=== PATIENT | female | born 1935 | race Caucasian/White ===

== ENCOUNTER 2020-11-18 11:21 | Emergency (ER) | payer MEDICARE, SELFPAY ==
--- NOTE | 2020-11-18 11:35 | ED.URI ---
HPI - URI/Sore Throat General Chief Complaint: Upper Respiratory Infection Stated Complaint: Sore Throat,Ear Pain Time Seen by Provider: 11/18/20 11:36 Source: patient Mode of arrival: ambulatory Limitations: no limitations History of Present Illness HPI Narrative: Yaritza Wheat is a 85 yo fenale with a PMH of high blood pressure, high cholesterol, diabetes, stroke treated with streptokinase in September, who comes to [facility] with complaints of sore throat for 2 to 3 weeks. She called her doctor Wednesday who recommended that she get a strep and Covid test but thinks it was just seasonal allergies and from her description of opening of her mouth wide and ear pressure improving and her on and off sore throat seems like a probable cause Related Data Home Medications Medication Instructions Recorded Confirmed allopurinol 11/18/20 amlodipine 11/18/20 atenolol 11/18/20 11/18/20 blood sugar diagnostic [OneTouch 11/18/20 11/18/20 Ultra Test] ergocalciferol (vitamin D2) 11/18/20 insulin glargine [Lantus U-100 SUBCUT 11/18/20 Insulin] insulin lispro [Humalog U-100 11/18/20 Insulin] isosorbide dinitrate mg 11/18/20 lancets [[facility] Plus 11/18/20 11/18/20 Lancet] lisinopril 11/18/20 nitroglycerin mg 11/18/20 pravastatin 11/18/20 Allergies Allergy/AdvReac Type Severity Reaction Status Date / Time indomethacin [From Indocin] Allergy Other Verified 11/18/20 11:53 metronidazole [From Flagyl] Allergy Unknown Verified 11/18/20 11:53 Review of Systems Review of Systems: CONSTITUTIONAL: Denies fever, chills, sweats. EYES: Denies visual changes, redness, discharge. ENT: Denies rhinorrhea, congestion, occasional sore throat, occasional otalgia. CARDIOVASCULAR: Denies chest pain, palpitations, edema. RESPIRATORY: Denies dyspnea, wheezing, cough GASTROINTESTINAL: Denies abdominal pain, nausea, vomiting, diarrhea. GENITOURINARY: Denies dysuria, hematuria, abnormal discharge SKIN: Denies rash or itching. NEUROLOGIC: Denies numbness, or focal weakness. PSYCHIATRIC: Denies anxiety or depression. PMFSH Past Medical History Medical History (Updated 11/18/20 @ 12:08 by Kellee Logan CNP) Diabetes High blood pressure High cholesterol Sore throat Surgical History Surgical History History of heart artery stent Social History Social History (Updated 11/18/20 @ 11:51 by Kellee Logan CNP) Smoking status: Never smoker Alcohol intake: never Comments At time of signature, I agree with nursing past medical, surgical, social and family history. There is no relevant family history pertinent to the presenting complaint. Exam Narrative: GENERAL: This is a well-nourished, well-developed patient, in mild distress. HEAD: normocephalic, atraumatic. EYES: . Sclera clear/white. Vision is grossly intact. EARS: External ears normal, Hearing grossly intact. NOSE: External nose normal without nasal discharge, nares without redness, no rhinorrhea. THROAT: Mucous membranes moist, posterior pharynx pink NECK: Neck supple, non-tender CARDIOVASCULAR: Regular rate and rhythm without murmurs, gallops, or rubs. RESPIRATORY: Clear to auscultation. Breath sounds equal bilaterally. No wheezes, rales, or rhonchi. GASTROINTESTINAL: Abdomen soft, non-tender, SKIN: warm, intact with no suspicious lesions or rash, good texture and turgor. NEURO: awake, alert, and oriented to person, place and time. There were no obvious focal neurologic abnormalities. Steady gait EXTREMITIES: Normal range of motion. BACK: Nontender without deformity Course Course Emergency Course: Patient comes with complaints of sore throat and ear pain for 2 to 3 weeks and is talked to her primary care physician Is here for strep and Covid test-both test negative Started on Zyrtec or Claritin each morning and Flonase as needed for congestion Vital Signs Vital signs: Vital Signs
[2020-11-18 11:45] VITALS: BP 174/84; PULSE 78; RESP 20; TEMP 36.7; O2SAT 99
--- NOTE | 2020-11-18 12:59 | PC.NURSE ---
[facility]# [id number]
== END 2020-11-18 12:15 | disposition home or self-care (01) ==
PROVIDERS: Emergency Provider Nurse Practitioner
DX: J30.2 Other seasonal allergic rhinitis (principal); Z20.822 Contact with and (suspected) exposure to COVID-19; I10 Essential (primary) hypertension; E78.00 Pure hypercholesterolemia, unspecified; E11.9 Type 2 diabetes mellitus without complications; Z86.73 Personal history of transient ischemic attack (TIA), and cerebral infarction without residual deficits; Z79.4 Long term (current) use of insulin; Z95.5 Presence of coronary angioplasty implant and graft
CPT/HCPCS: 87081; 87426; 87880; 99213; C9803; G0463

== ENCOUNTER 2021-01-17 13:49 | Emergency (ER) | payer MEDICARE, SELFPAY ==
[2021-01-17 14:11] VITALS: BP 137/63; PULSE 64; RESP 18; TEMP 36.1; O2SAT 99
--- NOTE | 2021-01-17 14:48 | ED.GENADULT ---
HPI - General Adult General Chief complaint: Upper Respiratory Infection Stated complaint: cold Source: patient Mode of arrival: ambulatory Limitations: no limitations History of Present Illness HPI narrative: Patient is a 85-year-old female presents to the [facility] via POV for evaluation of cold symptoms. She states she started with a cough and green/yellow mucus that started 1 week ago although has since resolved. Last night she began with a sore throat, dry cough, and sneezing although the symptoms have markedly improved since early this morning. Afrin, Coricidin, Listerine gargles, and Flonase provides moderate relief. Nothing worsens symptoms denies known exposure to sick contacts. She is requesting influenza and Covid test which was recommended by her PCP. She is fully vaccinated against Covid and has also received Covid booster Related Data Home Medications Medication Instructions Recorded Confirmed allopurinol 11/18/20 amlodipine 11/18/20 atenolol 11/18/20 11/18/20 blood sugar diagnostic [OneTouch 11/18/20 11/18/20 Ultra Test] ergocalciferol (vitamin D2) 11/18/20 insulin glargine [Lantus U-100 SUBCUT 11/18/20 Insulin] insulin lispro [Humalog U-100 11/18/20 Insulin] isosorbide dinitrate mg 11/18/20 lancets [[facility] Delica Plus 11/18/20 11/18/20 Lancet] lisinopril 11/18/20 nitroglycerin mg 11/18/20 pravastatin 11/18/20 Allergies Allergy/AdvReac Type Severity Reaction Status Date / Time indomethacin [From Indocin] Allergy Other Verified 11/18/20 11:53 metronidazole [From Flagyl] Allergy Unknown Verified 11/18/20 11:53 Review of Systems Review of Systems: Denies current/past tobacco use. Pertinent negatives: fever, sweats, chills, change in appetite, fatigue, skin color changes, headache, nasal congestion/discharge, dizziness, lymphadenopathy, sinus problems, ear pain/drainage, drooling, difficulty swallowing, voice changes, chest pain, heart murmurs, heart palpitations, shortness of breath, wheezing, cyanosis, hemoptysis, hoarseness, orthopnea, pleuritic pain, nausea, vomiting, diarrhea, and myalgias. PMFSH Past Medical History Medical History Diabetes High blood pressure High cholesterol Sore throat Surgical History Surgical History History of heart artery stent Social History Social History Smoking status: Never smoker Alcohol intake: never Comments I have reviewed and agree with the patient's past medical, surgical, social, and family hx as documented by the RN. There is no relevant family history pertinent to the presenting complaint. Exam Narrative: GENERAL: Well-appearing, well-nourished, and in no acute distress. HEAD: Normocephalic, atraumatic. No sinus tenderness or facial swelling appreciated. EYES: PERRLA and EOMI. No evidence of erythema, swelling, or drainage. ENT: Bilateral external ears and ear canals normal. Bilateral TMs are normal.No TM perforation. Nares clear, no rhinorrhea or epistaxis. Bilateral turbinates without erythema/ swelling. Mucous membranes moist and pink. Uvula is midline without erythema and swelling. No evidence of petechial rash, cobblestoning, lesions, ulcers, erythema, swelling, exudates, peritonsillar abscess, tenting, or drooling. Breath odor and voice normal. NECK: Supple. No Lymphadenopathy or nuchal rigidity appreciated. CHEST: Bilateral lung kc are clear to auscultation. No respiratory distress. No evidence of cough or pleuritic cp upon examination. HEART: Regular rate and rhythm. No murmur, gallop, or rub heard. EXTREMITIES: Normal range of motion. No edema. SKIN: Warm, dry, no rash. NEURO: No focal deficits. Alert and oriented x3. Course Vital Signs Vital signs: Vital Signs Temperature 96.9 F L 01/17/21 14:11 Pu
== END 2021-01-17 15:16 | disposition home or self-care (01) ==
PROVIDERS: Emergency Provider Nurse Practitioner Family
DX: J06.9 Acute upper respiratory infection, unspecified (principal); Z20.822 Contact with and (suspected) exposure to COVID-19; E11.9 Type 2 diabetes mellitus without complications; E78.00 Pure hypercholesterolemia, unspecified; Z95.5 Presence of coronary angioplasty implant and graft
CPT/HCPCS: 87426; 87804; 99213; C9803; G0463

== ENCOUNTER 2021-08-16 14:54 | Emergency (ER) | payer MEDICARE, SELFPAY ==
[2021-08-16 15:04] VITALS: BP 151/56; PULSE 60; RESP 20; TEMP 36.7; O2SAT 100
--- NOTE | 2021-08-16 16:17 | ED.GENADULT ---
HPI - General Adult General Chief complaint: Urogenital-Female Stated complaint: uti testing per Dr office Time Seen by Provider: 08/16/21 16:17 Source: patient Mode of arrival: ambulatory Limitations: no limitations History of Present Illness HPI narrative: 86-year-old female patient presents to the [facility] with complaints of pain with urination for the past 4 days. Patient states she has been vacationing but shows [place] Patient states she started having burning with urination about 4 days ago today no burning. Denies any low back pain states she just does not feel quite right. Denies any confusion, fevers, body aches or chills. Denies any nausea, vomiting or diarrhea. Denies any abdominal pain. Related Data Home Medications Medication Instructions Recorded Confirmed allopurinol 100 mg tablet 11/18/20 amlodipine 2.5 mg tablet 11/18/20 atenolol 25 mg tablet 11/18/20 11/18/20 blood sugar diagnostic ([employer] 11/18/20 11/18/20 Ultra Test strips) ergocalciferol (vitamin D2) 1,250 11/18/20 mcg (50,000 unit) capsule insulin glargine 100 unit/mL subcut 11/18/20 subcutaneous solution (Lantus U-100 Insulin) insulin lispro 100 unit/mL 11/18/20 subcutaneous solution (Humalog U-100 Insulin) isosorbide dinitrate 30 mg tablet mg 11/18/20 lancets 30 gauge (OneTouch Delica 11/18/20 11/18/20 Plus Lancet) lisinopril 20 mg tablet 11/18/20 nitroglycerin 0.4 mg sublingual mg 11/18/20 tablet pravastatin 20 mg tablet 11/18/20 Allergies Allergy/AdvReac Type Severity Reaction Status Date / Time indomethacin [From Indocin] Allergy Other Verified 11/18/20 11:53 metronidazole [From Flagyl] Allergy Unknown Verified 11/18/20 11:53 Review of Systems Review of Systems: CONSTITUTIONAL: Denies fever, chills, or sweats. EYES: Denies visual changes, redness, or discharge. ENT: Denies rhinorrhea, congestion, sore throat, or otalgia. CARDIOVASCULAR: Denies chest pain, palpitations, or edema. RESPIRATORY: Denies cough or dyspnea. GASTROINTESTINAL: Denies abdominal pain, nausea, vomiting, or diarrhea. GENITOURINARY: Denies dysuria or hematuria. Positive pain with urination x4 days SKIN: Denies rash or itching. MUSCULOSKELETAL: Denies back pain, joint pain, or myalgia. NEUROLOGIC: Denies headache, numbness, or weakness. PSYCHIATRIC: Denies anxiety or depression. PMFSH Past Medical History Medical History Diabetes High blood pressure High cholesterol Sore throat Surgical History Surgical History History of heart artery stent Social History Social History Smoking status: Never smoker Alcohol intake: never Comments At the time of my signature I agree with nursing past medical history, surgical, social, and family history. There is no relevant family history pertinent to the presenting complaint. Exam Narrative: GENERAL: Well-appearing, well-nourished, and in no acute distress. HEAD: Normocephalic, atraumatic. EYES: PERRLA and EOMI. ENT: Nares clear, no rhinorrhea or epistaxis. Mucous membranes moist. NECK: Supple. No lymphadenopathy CHEST: Clear to auscultation. No respiratory distress. HEART: Regular rate and rhythm. No murmur heard. Normal peripheral pulses. ABDOMEN: Soft, nontender, nondistended, normal active bowel sounds. No CVA tenderness on percussion EXTREMITIES: Normal range of motion. No edema. SKIN: Warm, dry, no rash. NEURO: No focal deficits. Alert and oriented x3. Course Course Level of Care: Express Care Visit Vital Signs Vital signs: Vital Signs Temperature 36.7 C 08/16/21 15:04 Pulse Rate 60 08/16/21 15:04 Respiratory Rate 20 08/16/21 15:04 Blood Pressure 151/56 H 08/16/21 15:04 Pulse Oximetry 100 08/16/21 15:04 Oxygen Delivery Room Air 08/16/21 15:
== END 2021-08-16 16:46 | disposition home or self-care (01) ==
PROVIDERS: Emergency Provider Nurse Practitioner Family
DX: N39.0 Urinary tract infection, site not specified (principal); E11.9 Type 2 diabetes mellitus without complications; I10 Essential (primary) hypertension; E78.00 Pure hypercholesterolemia, unspecified; Z95.5 Presence of coronary angioplasty implant and graft; Z79.4 Long term (current) use of insulin
CPT/HCPCS: 81003; 87077; 87086; 87186; 99213; G0463

== ENCOUNTER 2022-12-24 14:38 | Emergency (ER) | payer MEDICARE, SELFPAY ==
--- NOTE | 2022-12-24 14:40 | ED.GENADULT ---
HPI - General Adult General Chief complaint: Recheck/Abnormal Lab/Rx Stated complaint: Low Blood Sugar Time Seen by Provider: 12/24/22 14:59 Mode of arrival: ambulatory Limitations: no limitations History of Present Illness HPI narrative: 57-year-old female presents with concern for low blood sugar she is a diabetic with typically well controlled diabetes. She reports she has a Dexcom monitor, she changed the where avulsed portion today, a little while later she got and alert that her blood sugar was in the low 50s. She reports she had a backup monitor but the batteries were . She denies any symptoms, diaphoresis, fatigue, lightheadedness. MD complaint: Low blood sugar Related Data Home Medications Medication Instructions Recorded Confirmed allopurinol 100 mg tablet 11/18/20 amlodipine 2.5 mg tablet 11/18/20 atenolol 25 mg tablet 11/18/20 11/18/20 blood sugar diagnostic ([employer] 11/18/20 11/18/20 Ultra Test strips) ergocalciferol (vitamin D2) 1,250 11/18/20 mcg (50,000 unit) capsule insulin glargine 100 unit/mL subcut 11/18/20 subcutaneous solution (Lantus U-100 Insulin) insulin lispro 100 unit/mL 11/18/20 subcutaneous solution (Humalog U-100 Insulin) isosorbide dinitrate 30 mg tablet mg 11/18/20 lancets 30 gauge (OneTouch Delica 11/18/20 11/18/20 Plus Lancet) lisinopril 20 mg tablet 11/18/20 nitroglycerin 0.4 mg sublingual mg 11/18/20 tablet pravastatin 20 mg tablet 11/18/20 Allergies Allergy/AdvReac Type Severity Reaction Status Date / Time indomethacin [From Indocin] Allergy Other Verified 12/24/22 14:54 metronidazole [From Flagyl] Allergy Unknown Verified 12/24/22 14:54 Review of Systems Review of Systems: CONSTITUTIONAL: Denies malaise, chills, sweats, or fever. EYES: Denies visual changes CARDIOVASCULAR: Denies chest pain, palpitations, or edema. RESPIRATORY: Denies cough or dyspnea. GASTROINTESTINAL: Denies abdominal pain, nausea, vomiting, diarrhea NEUROLOGIC: Denies numbness, weakness, or headache. All systems reviewed & are unremarkable except as noted in HPI and below PMFSH Past Medical History Medical History Diabetes High blood pressure High cholesterol Sore throat Surgical History Surgical History History of heart artery stent Social History Social History Smoking status: Never smoker Alcohol intake: never Comments At time of signature, agree with nursing past medical, surgical, social and family history. There is no relevant family history pertinent to the presenting complaint Exam Narrative: GENERAL: Well-appearing, well-nourished, and in no acute distress. HEAD: Normocephalic, atraumatic. EYES: PERRLA, sclera clear, and EOMI. ENT: Nares clear. Mucous membranes moist. NECK: Supple. No lymphadenopathy. No jugular venous distension, thyromegaly, or carotid bruits. Carotids were easily palpable bilaterally. CHEST: No respiratory distress. Clear to auscultation. No bony deformities, no asymmetry. Speaks in full sentences. HEART: Regular rate and rhythm. No murmur heard. Normal peripheral pulses. SKIN: Warm, dry, no visible rash. NEURO: Alert and oriented x3. No focal deficits. PSYCH: Normal mood and affect Course Course Emergency Course: Likely that the patient's Dexcom monitor is reading falsely, continues to read in the 50s despite point of care glucose being 253. Patient reports she will change her aware will monitor and she will change the batteries in her backup device. Understands reasons to go to the ER if symptoms change or worsen. Patient is very aware of her diabetic control, symptom management. She lives with her daughter. Anticipatory guidance given. Patient agrees to follow-up as directed and is aware of reasons to seek care at the emergency d
[2022-12-24 14:50] VITALS: BP 167/60; PULSE 77; RESP 20; TEMP 36.8; O2SAT 100
[2022-12-24 14:51] LABS: Glucose Point of Care 253 mg/dl (65-105)
== END 2022-12-24 15:07 | disposition home or self-care (01) ==
PROVIDERS: Emergency Provider Nurse Practitioner
DX: Z71.1 Person with feared health complaint in whom no diagnosis is made (principal); E11.9 Type 2 diabetes mellitus without complications; I10 Essential (primary) hypertension; E78.00 Pure hypercholesterolemia, unspecified; Z95.5 Presence of coronary angioplasty implant and graft
CPT/HCPCS: 82948; 99212; G0463